=== PATIENT | female | born 1985 | race Two or more races ===

== ENCOUNTER 2020-05-24 15:18 | Emergency (ER) | payer MEDICARE, MEDICAID ==
[2020-05-24 17:36] VITALS: BP 99/56
== END 2020-05-24 18:01 | disposition home or self-care (01) ==
LOC: ER 15:21
DX: U07.1 COVID-19 (principal); J12.89 Other viral pneumonia
CPT/HCPCS: 71045; 99283; J7030

== ENCOUNTER → 2020-06-03 | Emergency (ER) | payer MEDICARE, MEDICAID ==
[~2020-06-03] VITALS: Ht 121.9 cm; Wt 99.8 kg
[2020-06-03 15:40] VITALS: BP 96/39
== END | disposition home or self-care (01) ==
LOC: ER 14:56
DX: S62.337A Displaced fracture of neck of fifth metacarpal bone, left hand, initial encounter for closed fracture (principal); S92.255A Nondisplaced fracture of navicular [scaphoid] of left foot, initial encounter for closed fracture; W18.39XA Other fall on same level, initial encounter; Y93.89 Activity, other specified; Y92.89 Other specified places as the place of occurrence of the external cause; Y99.8 Other external cause status
CPT/HCPCS: 29515; 71045; 73630; 99284; J7030